=== PATIENT | female | born 1950 | race Caucasian/White ===

== ENCOUNTER → 2017-01-02 | Outpatient (CLI) | payer MEDICARE, OTHER ==
[~2017-01-02] MED LIST: BUPR150T3; CIPR500S5 PO; LIDOCAINE 1% 30ml (STERI-PAK) ONE; LIDOCAINE 2%/EPI 1:100,000 20ml MDV ONE; LISI10TA7 PO; METO50TA5 PO; METOPROLOL; NORMAL SALINE 250 ML IV ONE; OXYC5TAB84 PO
--- NOTE | 2017-01-02 19:40 | PROCEDUREF ---
DATE OF PROCEDURE 01/02/2017 DIAGNOSIS BEFORE PROCEDURE Suspicious mass at right breast demonstrated on 12/31/2016 right diagnostic mammograms and on 12/31/2016 right breast ultrasound examination. DIAGNOSIS AFTER PROCEDURE Suspicious mass at right breast demonstrated on 12/31/2016 right diagnostic mammograms and on 12/31/2016 right breast ultrasound examination. PROCEDURE Ultrasound-guided percutaneous biopsy of right breast mass using a vacuum- assisted device. SURGEON Dr. Edwards ANESTHESIA Local anesthetic. FINDINGS This patient did undergo a right breast ultrasound examination on 12/31/2016 at [facility]. This ultrasound examination did show a 1.4 cm by 1.1 cm x 1.3 cm mass at the right breast at 11 o'clock position at middle depth 5 cm out from the nipple. This mass was taller than wide. The mass was irregular with an angular margin. The mass was hypoechoic with posterior shadowing. The mass was thought to be highly suggestive of a malignancy. This was an ultrasound BI-RADS category 5 (highly suggestive of malignancy) finding. Ultrasound-guided biopsy was recommended. The appearance of the mass at the right breast at ultrasound examination today was the same as the appearance at the previous ultrasound examination performed on 12/31/2016. The patient did have a 1.4 cm by 1.1 cm x 1.3 cm mass at the right breast at 11 o'clock position at middle depth 5 cm out from the nipple. This was a hypoechoic mass with posterior shadowing. Unilateral right mammograms were performed following the procedure today. The mammograms did show the biopsy cavity and the radiopaque biopsy site marker clip at the right breast in the correct position at 11 o'clock position. DESCRIPTION OF OPERATION The patient was placed on a cart in the ultrasound room at the [facility]. A targeted ultrasound examination of the right breast was performed. The suspicious mass at the right breast was demonstrated. The mass did appear the same at ultrasound examination today as it had at the previous ultrasound examination performed on 12/31/2016. The right breast was prepped with Betadine. Sterile drapes were placed. The mass was again demonstrated with ultrasound examination. A skin entrance site for biopsy of the mass with a vacuum-assisted device was selected in a location medial to the mass. Xylocaine 1% without epinephrine was infiltrated at the skin entrance site medial to the mass. This did provide local anesthesia. The scalpel was used to make a small incision at the skin at this area. Additional 1% Xylocaine without epinephrine was infiltrated into the breast tissue between the skin entrance site and the mass using a syringe and a 20-gauge spinal needle. Tissue deep to the mass was infiltrated with Xylocaine using a syringe and a 20-gauge spinal needle. Tissue out beyond the mass was infiltrated with Xylocaine using a syringe and a 20-gauge spinal needle. All this was done with the 20-gauge spinal needle with ultrasound guidance to observe where the local anesthetic was being infiltrated into the tissue. A [employer] [facility] breast biopsy and excision system with a 12-gauge needle was then used to perform the biopsies. The needle was introduced at the skin entrance site medial to the mass and passed through breast tissue into position beneath the mass using ultrasound guidance. Biopsy of the mass was then performed under direct visualization with real-time ultrasound. Multiple biopsy specimens were removed. All the biopsy specimens were obtained under direct visualization with real-time ultrasound. An [employer] titanium biopsy site marker was then deployed at biopsy site. This was deployed through the needle of the [employer] [facility] breast biopsy and excision system. The needle was removed from the breast. Biopsy specimens were submitted for study by the pathologist. The skin incision at the biopsy site was closed with Dermabond. Postprocedure unilateral right mammogram films were performed. The mammograms were reviewed with the radiologist. The patient did appear to tolerate the procedure well. [facility]. CHERIE
== END ==
LOC: IMA 10:22
PROVIDERS: ATTEND Surgery
DX: C50.411 Malignant neoplasm of upper-outer quadrant of right female breast (principal); Z17.0 Estrogen receptor positive status [ER+]; N63 Unspecified lump in breast
CPT/HCPCS: 19083; 88305; 88342; 88361; G0206; J7050

== ENCOUNTER 2017-01-15 07:25 | Outpatient (CLI) | payer MEDICARE, OTHER ==
[2017-01-15] VITALS (32 sets, daily range): BP systolic 107–177; BP diastolic 61–87; PULSE 68–87; RESP 8–18; TEMP 95.9–97.8; O2SAT 89–100; Ht 166.4 cm; Wt 68.1 kg
[~2017-01-15] VITALS: Ht 166.4 cm; Wt 68.1 kg
[~2017-01-15 07:25] MED LIST changes: -BUPR150T3; -CIPR500S5 PO; +LIDOCAINE 1% (10mg/ml) 2ml SDV INJ ONE; -LIDOCAINE 1% 30ml (STERI-PAK) ONE; -LIDOCAINE 2%/EPI 1:100,000 20ml MDV ONE; +LR 1,000 ML IV PRN; -METOPROLOL; -NORMAL SALINE 250 ML IV ONE; -OXYC5TAB84 PO
[2017-01-15 08:17] LABS: BASOPHILS % (AUTO) 0.5 % (0-2); EOSINOPHILS # (AUTO) 0.2 T/MM3 (0-0.5); EOSINOPHILS % (AUTO) 5.6 % (0-4); HCT - HEMATOCRIT 38.6 % (36-46); HGB - HEMOGLOBIN 12.6 GM/DL (12-16); IMMATURE GRANULOCYTE # (AUTO) 0.01 T/MM3 (0.00-0.03); IMMATURE GRANULOCYTE % (AUTO) 0.3 % (0.0-0.5); LYMPHOCYTES # (AUTO) 1.1 T/MM3 (1-4.8); LYMPHOCYTES % (AUTO) 28.1 % (23-45); MEAN CORPUSCULAR HGB 30.7 UUG (26-34); MEAN CORPUSCULAR HGB CONC(MCHC 32.6 GM/DL (31-37); MEAN CORPUSCULAR VOLUME 94.1 UM3 (80-100); MEAN PLATELET VOLUME 9.6 UM3 (9.4-12.4); MONOCYTES # (AUTO) 0.3 T/MM3 (0-0.8); MONOCYTES % (AUTO) 7.7 % (0-9.0); NEUTROPHILS #(AUTO)-ABSOLUTE 2.3 T/MM3 (1.8-7.7); NEUTROPHILS % (AUTO) 57.8 % (33-66); WBC - WHITE BLOOD COUNT 3.9 T/MM3 (4.5-11.0)
--- NOTE | 2017-01-15 08:50 | NUR ---
PT STATUS TO RADIOLOGY PER WC FOR SENTINEL NODE INJECTION AND NEEDLE LOCALIZATION
[2017-01-15] MEDS ORDERED: LIDOCAINE 1% 30ml (STERI-PAK) ONE (09:23)
--- NOTE | 2017-01-15 10:20 | NUR ---
pt status pt back from radiology per wc
--- NOTE | 2017-01-15 11:12 | DI ---
Indication: The purpose of this study is to localize the sentinel lymph node(s) for purposes of surgical planning. Procedure:NM LYMPHOSCINTIGRAPHY LYMPHOSCINTIGRAPHY: Technique: After discussing the details of the procedure, including the risks, the patient wished to proceed. Informed consent was obtained. A preprocedural pause was performed to confirm the correct patient and procedure. Approximately 0. 25 mCi of Tc-99m sulfur colloid was injected intradermally in four periareolar locations in the right breast. A total of approximately 1 mCi of Tc-99m sulfur colloid was injected. Anterior planar images were subsequently obtained. Findings: The 4 intradermal injection sites are visualized as intense focal uptake in the right breast region. Impression: 1. Technically successful periareolar injections for the purpose of lymphoscintigraphy. Jake Cason RPA/KATIE performed this under my personal supervision. .
--- NOTE | 2017-01-15 12:36 | ANESPREOP ---
Anesthesia Record Date and Time DATE: 01/15/17 TIME: 12:34 Proposed Surgical Procedure RT. PARTIAL MASTECTOMY AFTER BNEEDLE WIRE LOC. NPO since: mn Allergies: Coded Allergies: codeine (Verified Allergy, Intermediate, swells, 01/15/17) Penicillins (Verified Allergy, Unknown, RASH, 01/15/17) Ht/Wt/BMI Height: 5 ' 5.50 " Weight: 65.500 kg BMI: 23.7 kg/m2 Vital Signs Date Time Temp Pulse Resp B/P Pulse Ox O2 Delivery O2 Flow Rate FiO2 01/15/17 11:45 97.2 01/15/17 07:46 73 14 133/75 96 Room Air Medications Inpatient Medications Current Medications Medications (Trade) Dose Ordered Sig/Epi Start Time Stop Time Status Last Admin Dose Admin Lactated Ringer's (Lactated Ringers) 1,000 ml @ 50 mls/hr Q20H PRN 01/15/17 07:00 01/15/17 08:20 50 MLS/HR Lisinopril (Lisinopril) 10 Mg Tablet, 1 TAB PO DAILY, (Reported) Last Taken: on 01/14/17 Metoprolol Tartrate (Metoprolol Tartrate) 50 Mg Tablet, 1 TAB PO HS, (Reported) Last Taken: on 01/13/17 Currently on Beta Yojana: Yes Beta Yojana Last Taken: 01-13-17 at 2100 Beta Yojana not given due to: Other (npo) Medical/Surgical History Anesthesia PMH: Reports: *Hypertension (TAKES MEDS), Cancer (RT, SIDE BREAST CANCER), Hyperlipidemia, Denies: Anesthesia Reactions (NO AIRWAY ISSUES, NAUSEA) , Glaucoma, Hepatitis, Malignant Hyperthermia, Rheumatic Fever, Sleep Apnea Smoking Status: Never smoker Use Chewing Tobacco?: No Second Hand Exposure: No Substance Use Type: does not use Alcohol Intake: none HX of Last Menstrual Period: EARLY 50'S Past Surgical History Orthopedic Surgeries: Abdominal Surgeries: Yes - APPY Genitourinary Surgeries: Cardiac Surgeries: Endocrine Surgeries: Reproductive Surgeries: Neurological Surgeries: Ear Surgeries: Nose Surgeries: Throat Surgeries: Yes - TONSILLS Other Surgeries: Yes - COLONOSCOPY Anesthesia Adverse Reactions: FOUND nausea and vomiting Family Hx of Anesthesia Advers: none Hx of Motion Sickness: No Pertinent Findings Laboratory Tests 01/15/17 08:01 Physical Exam Respiratory: Bilat breath sounds equal, Lungs clear Cardiovascular: FOUND Regular rate, rhythm Airway Assessment Mallampati Score: I TMD: 3 Fingerbreadths Neck Extension: Fair Teeth: Chipped Teeth/Crowns 1 - chipped Overall Assessment: No Airway Concerns ASA: 2 Plan Anesthesia Plan: LMA, GETA Discussion Discussed risks/options/alternatives of anesthesia and questions answered. Patient consents. Nursing pain assessment noted. Present: Family Member Attestation Statement Prior to the delivery of any anesthetic medication, I examined the patient, developed the plan, obtained the patient's consent and discussed the risk and benefits of the procedure with the patient/guardian. DILAN NIÑO IN HOME NANNY Jan 15, 2017 12:36
[2017-01-15] MEDS ORDERED: PROPOFOL 200mg 20 ML IV ONE (12:43)
[2017-01-15] MEDS ORDERED: FENTANYL 250mcg/5ml INJECTION ONE (12:43)
[2017-01-15] MEDS ORDERED: SCOPOLAMINE 1.5 MG PATCH TD ONE (12:45)
[2017-01-15] MEDS ORDERED: MIDAZOLAM 2mg/2ml INJECTION ONE (13:02)
[2017-01-15] MEDS ORDERED: DEXAMETHASONE 4mg/ml - 1ml INJECTION ONE (13:21)
[2017-01-15] MEDS ORDERED: ONDANSETRON 4mg/2ml INJECTION ONE (13:21)
[2017-01-15] MEDS ORDERED: HYDROMORPHONE 2mg/ml INJECTION ONE (14:45)
[2017-01-15] MEDS ORDERED: ISOSULFAN BLUE 5ml INJECTION SQ ONE (15:00)
[2017-01-15] MEDS ORDERED: ONDANSETRON 4mg/2ml INJECTION IV PRN ×2 (15:00→15:30)
[2017-01-15] MEDS ORDERED: HYDROMORPHONE 2mg/ml INJECTION IV PRN (15:00)
--- NOTE | 2017-01-15 15:25 | GSPOSTPROC ---
Immediate Operative Note DATE: 01/15/17 TIME: 15:24 Postop Diagnosis: Right breast carcinoma Surgical Procedure: Other (Right partial mastectomy) Surgeon: Grace ASA: 2 TITUS MANCERA MD Jan 15, 2017 15:25
[2017-01-15] MEDS: LR 1,000 ML IV SCH (15:26)
[2017-01-15] MEDS ORDERED: MORPHINE SULFATE 10 MG SYRINGE IV PRN (15:30)
[2017-01-15] MEDS ORDERED: ACETAMINOPHEN 500 MG TABLET PO PRN (15:30)
[2017-01-15] MEDS ORDERED: PROMETHAZINE 25 MG INJECTION IV PRN (15:30)
--- NOTE | 2017-01-15 15:54 | NUR ---
PACU/PAIN/NOTIFICATION Siva Dunaway crna and Dr Edwards both notified of pt rating pain 8-9/10 to Right Breast. Pt on 2L NC, respirations 10-11/minute. Order for Dilaudid from anesthesia. This RN not administering this medication due to respirations. Siva Dunaway suggest Toradol. Dr Edwards declines use of Toradol at this time. Dr Edwards verbalized that this RN can administer PO medication in PACU for pain management if pt is awake. pt states to this RN she is not ready to swallow pills at this time until more awake. Will continue to monitor.
--- NOTE | 2017-01-15 16:18 | NUR ---
Anesthesia/PACU Siva Dunaway CRNA here to see pt in pacu. pt continues to have 10-12 respirations, responds quickly to verbal stimuli. Plan of care discussed with pt that pt will transfer to room on surgical unit and receive PO pain medication. Pt verbalized understanding and agrees to plan at this time. Will call report to nurse on surgical unit. Will transfer post pt.
--- NOTE | 2017-01-15 16:20 | ANESPO ---
Post-Op Note Date 01/15/17 Time: 16:20 Status Pt Participated in Evaluation: Pt participated in person Vital Signs Date Time Temp Pulse Resp B/P Pulse Ox O2 Delivery O2 Flow Rate FiO2 01/15/17 16:05 97.6 72 8 142/74 98 Nasal Cannula 2.00 Respiratory Function: Airway patent, Regular respirations Cardiovascular Function: Regular pulse Mental Status: Alert/oriented Pain Level Intensity: 6 Hydration: IV infusing Complications during Recovery None apparent Follow-Up Instructions Instructions Per Surgeon DILAN NIÑO CRNA Jan 15, 2017 16:20
--- NOTE | 2017-01-15 16:31 | NUR ---
Admit Pt transferred self from cart to bed. [address] Pt denies nausea. VS stable on 1L NC. present in room. Side rails up X2, call light w/in reach, bed alarm on. Will continue to monitor.
[2017-01-15] MEDS: OXYCODONE I.R. 5 MG TABLET PO PRN ×2 (17:23→21:37)
--- NOTE | 2017-01-15 18:49 | NUR ---
Summary Pt weaned off oxygen, VS have been stable on RA. Pt has denied nausea. Pt rated pain a 7/10, 2 tabs oxycodone given. Discussed other pain management options with Pt. Family has been present in room. Bed alarm on, call light w/in reach.
[2017-01-15] MEDS: IBUPROFEN 200 MG TABLET PO PRN (19:15)
[2017-01-16 00:10] VITALS: BP 104/64; PULSE 70; RESP 16; TEMP 95.2; O2SAT 99
[2017-01-16] MEDS: LR 1,000 ML IV SCH (00:20)
[2017-01-16] MEDS: IBUPROFEN 200 MG TABLET PO PRN ×2 (00:25→09:02)
[2017-01-16] MEDS: OXYCODONE I.R. 5 MG TABLET PO PRN ×4 (01:21→15:52)
--- NOTE | 2017-01-16 03:29 | NUR ---
Chart Check 24 hour chart check completed
[2017-01-16 05:37] VITALS: BP 112/66; PULSE 69; RESP 16; TEMP 95; O2SAT 100
--- NOTE | 2017-01-16 06:31 | NUR ---
STATUS PATIENT ALERT AND ORIENTED. PATIENT C/O PAIN AT RT BREAST SURGICAL AREA ,RATED 4-7/10. PRN ROXICODONE AND MOTRIN WAS GIVEN. ON ROOM AIR.DENIES CHEST PAIN,SOA,OR N/V.PATIENT AMBULATED TO BATHROOM TO VOID ONE TIME DURING NIGHT. PATIENT WANTED TO LEARN TO EMPTY FELIPE DRAINAGE THIS MORNING. CALL LIGHT WITHIN REACH. CONTINUE TO MONITOR.
[2017-01-16 07:36] VITALS: PULSE 69; RESP 16
[2017-01-16 07:37] VITALS: BP 117/67; PULSE 69; RESP 16; TEMP 97.6; O2SAT 100
--- NOTE | 2017-01-16 08:45 | NUR ---
FELIPE dressing Dr. Edwards in to see Pt at this time and removed dressing from incision sites. Leave open to air per Dr. Edwards.
[2017-01-16] MEDS ORDERED: LISINOPRIL 10 MG TABLET PO SCH (09:00)
--- NOTE | 2017-01-16 09:46 | OPNOTEF ---
DATE OF OPERATION 01/15/2017 PREOPERATIVE DIAGNOSIS Invasive ductal carcinoma at right breast. POSTOPERATIVE DIAGNOSIS Invasive ductal carcinoma at right breast. OPERATION Right axillary sentinel lymph node dissection and right partial mastectomy ( lumpectomy). SURGEON Dr. Edwards ANESTHESIA General. ASA CLASS 2 FINDINGS The patient did have a nonpalpable mass at the upper outer quadrant of the right breast. Previous core needle biopsy of the mass did show a diagnosis of invasive ductal carcinoma. The patient did have two sentinel lymph nodes at the right axilla removed at the time of the operation today. Each of these two sentinel lymph nodes was stained blue with Lymphazurin 1% (isosulfan blue) dye. Both of the sentinel lymph nodes also had elevated radioactive counts. The ex vivo peak count for the first sentinel lymph node was 381 counts per second. The ex vivo 10-second count for the first sentinel lymph node was 2,931 counts per second. The ex vivo peak count for the second sentinel lymph node was 259 counts per second. The ex vivo 10-second count for the second sentinel lymph node was 1,595 counts per second. The patient did undergo preoperative ultrasound-guided needle wire localization of the nonpalpable mass at the right breast by a radiologist at the [facility]. A specimen of right breast tissue containing the mass and containing the needle localization wire was removed at the time of the operation. The specimen of breast tissue which was excised from the right breast was submitted for specimen radiography. A verbal report was returned from the radiologist following specimen radiography indicating that the right breast mass was present within the specimen of right breast tissue excised at the time of the operation today. DESCRIPTION OF OPERATION The patient was taken to the imaging department at [facility] preoperatively where technetium- 99m sulfur colloid radioisotope was injected at the right breast. The injection of the technetium-99m sulfur colloid radioisotope was performed by the radiologist at the imaging department. The patient did also undergo preoperative needle wire localization of the nonpalpable mass and the previous core needle biopsy site at the right breast by the radiologist at the [facility] [place] [facility]. The patient was then transferred to the short stay surgery unit. The patient was then transferred from the short stay surgery unit to the operating room. The patient was placed in a supine position on the operating table with the right arm extended out on an arm board. General anesthesia was satisfactorily induced. Lymphazurin 1% ( isosulfan blue) dye was then injected by Dr. Edwards. A total of 5 ml of this Lymphazurin 1% dye was injected subdermally beneath the upper outer quadrant of the areola of the right breast. The right breast and axilla were then prepped and draped in routine sterile fashion. A short incision was made at the anterior margin of the right axilla. The incision was extended down through the subcutaneous tissue. The margin of the pectoralis major muscle was dissected out and defined at this time. The margin of the pectoralis minor muscle was also dissected out and defined at this time. Clavipectoral fascia was incised. The axillary tissue at the right axilla was spread with a hemostat to bluntly dissect down into the axillary tissue. Some lymphatic channels filled with blue dye were searched for and were identified at this time. These lymphatic channels were dissected out and they did lead to a blue lymph node. This blue lymph node was excised with the Harmonic focus ultrasonically activated coagulating marlyn. The Navigator Gamma Positioning System was then used to determine the radioactive count for this sentinel lymph node. Results are as described above. This lymph node was designated sentinel lymph node #1 and was submitted as a specimen for study by a pathologist. The lymphatic mapping gamma probe was then used to examine the right axilla. This examination of the right axillary tissue with the lymphatic mapping gamma probe did lead to the identification of another lymph node with an elevated radioactive count. Dissection was extended down through right axillary tissue to this lymph node. When this lymph node was exposed, it was also found to have a blue color. This second sentinel lymph node was then excised with the Harmonic focus ultrasonically activated coagulating marlyn. The Navigator Gamma Positioning System was then used to determine the radioactive count for this second sentinel lymph node. Results were as described above. The second sentinel lymph node was then submitted as a specimen for study by a pathologist. The lymphatic mapping gamma probe was then used to further examine the right axillary tissue. No further lymph nodes with elevated radioactive count were able to be found with the lymphatic mapping gamma probe. No further blue-colored lymph nodes were able to be found at the right axillary tissue. Hemostasis was satisfactory at the axilla. A 19-Dominican round Bard channel drain was placed to the right axillary wound. The drain was brought out through a separate opening in the skin. The drain was secured to the skin with 2-0 Prolene suture. Subcutaneous tissue margins at the right axillary wound were reapproximated in two layers with a continuous simple [id number] stitch using 3-0 Vicryl suture. Skin margins at the right axillary incision were reapproximated with a continuous vertical mattress stitch using 3-0 Prolene suture. Attention was directed to performing a right partial mastectomy to remove the nonpalpable mass and the biopsy site at the right breast. A circumferentially oriented incision was made at the upper outer quadrant of the right breast. The incision was extended laterally nearly all the way over to the point where the needle localization wire entered the skin of the breast. Skin and subcutaneous tissue flaps were elevated at superior and inferior sides of this incision. The needle localization wire was brought out through the incision. A specimen of breast tissue containing the needle localization wire was excised. This specimen of tissue also contained a palpable mass. The specimen of right breast tissue containing the needle localization wire and the mass which was now able to be palpated within this tissue was submitted for specimen radiography. A verbal report was returned from the radiologist following specimen radiography with results as described above. The specimen of breast tissue was then submitted for study by a pathologist. A long 3-0 Vicryl suture had been placed at the lateral margin of this specimen of breast tissue and a short piece of 3-0 Vicryl suture had been placed at the superior margin of this specimen of breast tissue to help orient the specimen for the pathologist. Hemostasis was achieved at the wound. A 19-Dominican round Bard channel drain was placed at the right breast wound. This drain was brought out through a separate skin opening beneath the inferior lateral margin of the right breast. The drain was secured to skin with 2-0 Prolene suture. The subcutaneous tissue margins of the right breast incision were reapproximated with a continuous simple [id number]-[id number] stitch using 3-0 Vicryl suture. The skin margins at the right breast incision were reapproximated with a continuous vertical mattress stitch using 3-0 Prolene suture. Sterile dressings were applied to the wound at the right breast and the wound at the right axilla. Sponge, needle and instrument counts were all correct. The patient tolerated the operation well. The patient was transferred from the operating room to the recovery room in satisfactory condition. CHERIE
--- NOTE | 2017-01-16 10:39 | PNF ---
DATE 01/16/2017 POSTOP DAY #1 HISTORY The patient is doing well. She has good pain control with oral analgesics. She is tolerating her diet well. She has been up ambulating. She meets discharge criteria. INTAKE AND OUTPUT The patient has had minimal output from the Bard channel drains. PHYSICAL EXAMINATION VITAL SIGNS: Temperature is 97.6 degrees oral. Pulse is 69. Respiratory rate is 16. Blood pressure is 117/67. Oxygen saturation is 100% on room air. BREASTS: The incision at the right breast looks good. The Bard drain site to the right breast looks good. AXILLA: The incision at the right axilla looks good. The Bard drain site to the right axilla looks good. IMPRESSION Doing well following right axillary sentinel lymph node dissection and right partial mastectomy (lumpectomy) on 01/15/2017. PLAN Dismiss patient from [facility] today. CHERIE
--- NOTE | 2017-01-16 11:15 | NUR ---
CM CM IN TO VISIT WITH PT. SHE IS ALERT AND ORIENTED. SHE PLANS TO DC HOME. SHE REPORTS THAT SHE IS COMFORTABLE CARING FOR HER FELIPE DRAINS. SHE IS GIVEN CM CONTACT INFORMATION. LACE SCORE IS 3. NO FURTHER INTERVENTION NEEDED. Addendum: 01/16/17 at 1125 by RONNIE TUBBS RN Amended: Links added.
[2017-01-16 11:35] VITALS: BP 111/65; PULSE 81; TEMP 97.3; O2SAT 98
[2017-01-16] MEDS ORDERED: OXYC5TAB84 PO (16:02)
--- NOTE | 2017-01-16 17:07 | NUR ---
Discharge Pt discharged at this time via wheelchair through the main entrance in the company of an adult. IV catheter was DC'd, catheter tip intact. VS stable on RA. Discharge packet and instructions were given to Pt. This RN discussed medications, activity, diet, restrictions, and follow up appt with Pt. This RN did teaching and had the Pt empty both FELIPE drains. Pt demonstrated emptying the drains and suctioning the bulb back down properly. This RN gave Pt sheets to measure and record the output for the FELIPE drains. This RN sent Pt home with medication cups and plastic cylinders to measure the drainage with. Prescription for Oxycodone was given to the Pt to take to preferred pharmacy.
[2017-01-18] MEDS ORDERED: SCOPOLAMINE PATCH REMOVAL TD ONE (13:00)
--- NOTE | 2017-01-21 13:51 | NUR ---
MALINDA PETTY PLACED FOLLOW UP DISCHARGE CALL. PATIENT REPORTS SHE IS DOING GOOD, SHE HAD HER FOLLOW UP WITH THE DOCTOR AND HE TOLD HER EVERYTHING LOOKED GREAT. PATIENT REPORTS SHE WILL SEE THE ONCOLOGIST THIS FRIDAY. PATIENT DENIES QUESTIONS OR CONCERNS.
== END 2017-01-16 17:07 | disposition home or self-care (01) ==
LOC: IMA 07:25 → SRG 07:26 → IMA 01-16 17:07
PROVIDERS: ATTEND Surgery
DX: C50.411 Malignant neoplasm of upper-outer quadrant of right female breast (principal); C77.3 Secondary and unspecified malignant neoplasm of axilla and upper limb lymph nodes; Z17.0 Estrogen receptor positive status [ER+]; I10 Essential (primary) hypertension; E78.5 Hyperlipidemia, unspecified; Z79.899 Other long term (current) drug therapy
CPT/HCPCS: 19285; 19301; 36415; 38525; 38900; 76098; 78195; 85025; 88307; A9270; A9541; J1100; J1170; J2250; J2405; J2704; J3010; J7120; Q9968

== ENCOUNTER → 2017-02-07 | Outpatient (CLI) | payer MEDICARE, OTHER ==
[~2017-02-07] MED LIST changes: +IOHEXOL 300 MG/ML 100ml INJECTION ONE; -LIDOCAINE 1% (10mg/ml) 2ml SDV INJ ONE; -LR 1,000 ML IV PRN; +NORMAL SALINE 100 ML ONE; +OXYC5TAB84 PO; +SALINE FLUSH 10ml SYRINGE ONE
[2017-02-07 07:57] LABS: ALBUMIN 4.2 G/DL (3.5-5.0); ALBUMIN/GLOBULIN RATIO 1.5 RATIO (1.1-2.2); ALKALINE PHOSPHATASE 68 U/L (38-126); ALT (SGPT) 28 U/L (9-52); ANION GAP 11 MEQ/L (5-15); AST (SGOT) 26 U/L (14-36); BUN/CREATININE RATIO 17 RATIO (6-26); CALCIUM 10.1 MG/DL (8.4-10.2); CHLORIDE 107 MEQ/L (98-107); CO2 - CARBON DIOXIDE 27 MEQ/L (22-30); GLOMERULAR FILTRATION RATE 55; GLUCOSE 115 MG/DL (65-110); POTASSIUM 4.2 MEQ/L (3.6-5); SODIUM 145 MEQ/L (134-144)
--- NOTE | 2017-02-07 10:04 | DI ---
Indication: ITS.REASON: C50.411 BREAST CA PROCEDURE: CT HEAD/CHEST/ABD/PELVIS W/C: Encounter: Initial Comparison: Head CT dated October 25, 2016 CT head with and without: Technique: Axial CT images through the head were performed without and with IV contrast. Iterative Reconstruction dose reducing technique was utilized. Contrast: Omnipaque 300 89 mL FINDINGS: The ventricles are of normal size, shape, and contour for the patient's age. The brainstem, cerebellum, and cerebral hemispheres have a normal morphology and CT attenuation. No hemorrhage, mass effect, mass lesions, or edema is evident. No areas of abnormal enhancement are seen. The visualized portions of the skull base, and calvarium demonstrate no abnormality. Chronic appearing right maxillary sinusitis. IMPRESSION: No acute intracranial abnormality. No evidence of intracranial metastatic disease. CT chest, abdomen and pelvis with: Comparison: None Technique: Axial CT images were performed through the chest, abdomen and pelvis after the administration of intravenous contrast. Coronal and sagittal two-dimensional reformats. Automated Exposure Control and Iterative Reconstruction dose reducing techniques were utilized. Contrast: Omnipaque 300 89 mL Findings: Chest: Round subpleural right upper lobe nodule on axial image #16 measuring 1.4 cm in diameter. There is a calcified granuloma in the right upper lobe on image #21. Partially calcified 5 mm right lower lobe nodule on image #47. No additional pulmonary nodules or masses. No pleural effusion or pneumothorax. The central airways are patent. No pneumonia. No axillary or mediastinal adenopathy. Postoperative change in the right breast. Heart size is normal. No pericardial effusion. The great vessels are normal. Abdomen/pelvis: 1.9 cm cyst in the superior left lobe of the liver. Additional subcentimeter low-attenuation foci in the posterior right lobe of the liver which are too small to characterize but statistically represent benign cysts. No enhancing liver mass or bile duct dilatation. The gallbladder is unremarkable. The spleen with accessory splenule, pancreas, adrenal glands and kidneys are normal. No abdominal or pelvic lymphadenopathy. The bladder is normal. Uterus is unremarkable. No free fluid. No evidence of a bowel obstruction. Bone windows show mild degenerative change in the spine. There is a mixed lytic and sclerotic lesion in the right aspect of L5 measuring 1.7 cm in diameter. This does not have the typical appearance of a hemangioma. No additional lytic or blastic osseous lesions seen. Impression: 1. 1.4 cm pleural-based right upper lobe nodule is indeterminate. Differential considerations include noncalcified granuloma, hamartoma, metastasis or neurogenic tumor such as neurofibroma. PET/CT could be helpful for further evaluation or comparison with any available prior CT imaging of the chest. 2. Isolated sclerotic focus in the right L5 vertebra. Differential considerations include atypical hemangioma, metastasis or bone island. Nuclear medicine bone scan or contrast enhanced lumbar MRI may be helpful for further evaluation. .
--- NOTE | 2017-02-07 10:40 | DI ---
Indication: ITS.REASON: C50.411 BREAST CA PROCEDURE: NM BONE SCAN, WHOLE BODY: Encounter: Subsequent Comparison: CT head, chest, abdomen and pelvis from today Technique: 27 mCi of Tc-99m MDP was administered intravenously. Anterior and posterior planar whole-body and spot images were obtained. FINDINGS: The scan demonstrates the expected normal biodistribution for the radiotracer. There is probable degenerative uptake seen in the left upper cervical spine. There is also degenerative uptake in the right acetabular region corresponding to an area of subchondral cystic degenerative change on the comparison CT. There is lesser degenerative uptake in the left acetabular region. There is evidence of very subtle uptake in the right L5 vertebra in the area of abnormality seen on the CT. No other areas of abnormal uptake. There is no abnormal radiotracer uptake to suggest bony metastasis. IMPRESSION: Very mild uptake within the sclerotic L5 vertebral lesion seen by CT. A benign process would be statistically more likely than an isolated bony metastasis but further evaluation with CT-guided biopsy or contrast enhanced MRI may be helpful. .
== END ==
LOC: IMA 07:12
PROVIDERS: ATTEND Internal Medicine Hematology & Oncology
DX: C50.411 Malignant neoplasm of upper-outer quadrant of right female breast (principal); R91.1 Solitary pulmonary nodule; R94.8 Abnormal results of function studies of other organs and systems
CPT/HCPCS: 36415; 70470; 71260; 74177; 78306; 80053; A9503; J7050; Q9967

== ENCOUNTER 2017-02-11 12:09 | Day surgery (SDC) | payer MEDICARE, OTHER ==
[~2017-02-11] VITALS: Ht 166.4 cm; Wt 60.2 kg
[~2017-02-11 12:09] MED LIST changes: -IOHEXOL 300 MG/ML 100ml INJECTION ONE; +LIDOCAINE 1% (10mg/ml) 2ml SDV INJ ONE; +LR 1,000 ML IV SCH; -NORMAL SALINE 100 ML ONE; -SALINE FLUSH 10ml SYRINGE ONE
--- OUTSIDE RECORDS SUMMARY | 2017-02-11 12:13 | XMS REPORT | Continuity of Care Document ---
Author Author [facility] Organization [facility] Address Unknown Phone Unavailable Support Name Relationship Address Phone CARI CHAMPION MD Caregiver [address] [place] [address] [place] [phone] REGINALD COLE Next Of Kin [address] [place] [id number] Insurance Providers Payer Name Policy Number Subscriber Name Relationship Medicare [id number] Sharon Cole 16 Self Advance Directives Directive Response Recorded Date/Time Advanced Directives Type None 06/03/14 2:54am Problems Medical Problems Problem Onset Date Status UTI (lower urinary tract infection) Unknown Active Anxiety Unknown Active Medications Medication Dose Route Sig Days/Qty Instructions Order Date Discontinued Date Status Lisinopril 06/03/14 Active Bupropion HCl 06/03/14 Active [Metoprolol] 06/03/14 Active Ciprofloxacin 500 Mg PO TWICE A DAY 7 Days 06/03/14 Active Social History Social History Problem Response Recorded Date/Time Smoking Status Unknown if ever smoked 06/03/2014 3:45am Chewing Tobacco Status No 06/03/2014 3:45am Hx Substance Use No 06/03/2014 3:45am Hx Alcohol Use Y "A GLASS OF WINE TONIGHT" 06/03/2014 3:45am Hospital Discharge Instructions No hospital discharge instructions. Plan of Care No plan of care. Functional Status Query Response Date Recorded Physical Hygiene Self June 03, 2014 3:45am Disabilities None June 03, 2014 3:45am Devices Used None June 03, 2014 3:45am Dressing Self June 03, 2014 3:45am Ambulation Self June 03, 2014 3:45am Diet Self June 03, 2014 3:45am Mental Status Alert June 03, 2014 5:28am Disabilities None June 03, 2014 3:45am Devices Used None June 03, 2014 3:45am Physical Hygiene Self June 03, 2014 3:45am Dressing Self June 03, 2014 3:45am Ambulation Self June 03, 2014 3:45am Diet Self June 03, 2014 3:45am Allergies, Adverse Reactions, Alerts Allergen Type Severity Reaction Status Last Updated Penicillin Allergy Unknown Active 06/03/14 Immunizations No immunization records. Vital Signs Acute Vital Signs Vital Response Date/Time Temperature (Fahrenheit) 96.6 deg F (96.8 - 99.1) Temperature (Calculated Celsius) 35.71333 degrees C (36.0 - 37.3) Pulse Rate (adult) 76 bpm (60 - 100) Respiratory Rate 18 breaths/min (10 - 20) O2 Sat by Pulse Oximetry 97 % (90 - 100) Blood Pressure 136/79 mm Hg Height 5 ft 6 in Weight 144 lb Body Mass Index 23.0 kg/m^2 Results Test Source Date Result Interp. Ref. Range Comments Alanine Aminotransferase (ALT/SGPT) June 03, 2014 2:40am 35 U/L N 9- 52 Albumin June 03, 2014 2:40am 4.5 G/DL N 3.5-5.0 Albumin/Globulin Ratio June 03, 2014 2:40am 1.7 RATIO N 1.1-2.2 Alcohol, Quantitative June 03, 2014 2:40am 203 MG/DL - Alkaline Phosphatase June 03, 2014 2:40am 76 U/L N 38-126 Anion Gap June 03, 2014 2:40am 17 MEQ/L H 5-15 Aspartate Amino Transf (AST/SGOT) June 03, 2014 2:40am 37 U/L H 14-36 BUN/Creatinine Ratio June 03, 2014 2:40am 20 RATIO N 6-26 Basophils # (Auto) June 03, 2014 2:40am 0.0 T/MM3 N 0-0.2 Basophils (%) (Auto) June 03, 2014 2:40am 0.8 % N 0-2 Blood Urea Nitrogen June 03, 2014 2:40am 22.0 MG/DL H 7-17 Calcium Level June 03, 2014 2:40am 9.6 MG/DL N 8.4-10.2 Calculated Osmolality June 03, 2014 2:40am 287 MOSM/KG H 261-280 Carbon Dioxide Level June 03, 2014 2:40am 26 MEQ/L N 22-30 Chloride Level June 03, 2014 2:40am 105 MEQ/L N 98-107 Creatinine June 03, 2014 2:40am 1.1 MG/DL N 0.7-1.2 D-Dimer June 03, 2014 2:40am 222 NG/ML N 0-230 <224 NG/ML= PRESUMPTIVE NEGATIVE FOR PE OR DVT>224 NG/ML=ADDITIONAL EVALUATION FOR PE OR DVT RECOMMENDED Eosinophils # (Auto) June 03, 2014 2:40am 0.4 T/MM3 N 0-0.5 Eosinophils (%) (Auto) June 03, 2014 2:40am 7.1 % H 0-4 Globulin June 03, 2014 2:40am 2.7 G/DL N 2.4-3.6 Glucose Level June 03, 2014 2:40am 91 MG/DL N 65-110 Hematocrit June 03, 2014 2:40am 40.3 % N 36-46 Hemoglobin June 03, 2014 2:40am 13.6 GM/DL N 12-16 Lymphocytes # (Auto) June 03, 2014 2:40am 2.2 T/MM3 N 1-4.8 Lymphocytes (%) (Auto) June 03, 2014 2:40am 41.1 % N 23-45 Magnesium Level June 03, 2014 2:40am 2.1 MG/DL N 1.6-2.3 Mean Corpuscular Hemoglobin June 03, 2014 2:40am 32.4 UUG N 26-34 Mean Corpuscular Hemoglobin Concent June 03, 2014 2:40am 33.7 GM/DL N 31-37 Mean Corpuscular Volume June 03, 2014 2:40am 96.0 UM3 N 80-100 Mean Platelet Volume June 03, 2014 2:40am 9.8 UM3 N 9.4-12.4 Monocytes # (Auto) June 03, 2014 2:40am 0.5 T/MM3 N 0-0.8 Monocytes (%) (Auto) June 03, 2014 2:40am 9.6 % H 0-9.0 Neutrophils # (Auto) June 03, 2014 2:40am 2.2 T/MM3 N 1.8-7.7 Neutrophils (%) (Auto) June 03, 2014 2:40am 41.0 % N 33-66 Platelet Count June 03, 2014 2:40am 253 T/MM3 N 130-400 Potassium Level June 03, 2014 2:40am 4.2 MEQ/L N 3.6-5 RDW Standard Deviation June 03, 2014 2:40am 43.3 FL N 36.9-50.2 Red Blood Count June 03, 2014 2:40am 4.20 M/MM3 N 4.00-5.20 Sodium Level June 03, 2014 2:40am 148 MEQ/L H 134-144 Total Bilirubin June 03, 2014 2:40am 0.50 MG/DL N 0.20-1.30 Total Protein June 03, 2014 2:40am 7.2 G/DL N 6.3-8.2 Troponin I June 03, 2014 2:40am < 0.012 ng/ml 0-0.12 Urine Bacteria June 03, 2014 4:40am 1+ H - Has specimen been collected/obtained? Y Urine Bilirubin June 03, 2014 4:40am Negative - Has specimen been collected/obtained? Y Urine Blood June 03, 2014 4:40am Negative - Has specimen been collected/obtained? Y Urine Collection Type June 03, 2014 4:40am Voided-not cc-midstr - Has specimen been collected/obtained? Y Urine Color June 03, 2014 4:40am Yellow - Has specimen been collected/obtained? Y Urine Glucose (UA) June 03, 2014 4:40am Negative - Has specimen been collected/obtained? Y Urine Hyaline Casts June 03, 2014 4:40am 1-3 /LPF - Has specimen been collected/obtained? Y Urine Ketones June 03, 2014 4:40am Negative - Has specimen been collected/obtained? Y Urine Leukocyte Esterase June 03, 2014 4:40am 2+ H - Has specimen been collected/obtained? Y Urine Nitrite June 03, 2014 4:40am Negative - Has specimen been collected/obtained? Y Urine Protein June 03, 2014 4:40am Negative - Has specimen been collected/obtained? Y Urine RBC June 03, 2014 4:40am 0-1 /HPF - Has specimen been collected/obtained? Y Urine Specific [place] June 03, 2014 4:40am 1.010 L - Has specimen been collected/obtained? Y Urine Squamous Epithelial Cells June 03, 2014 4:40am 20-50 - Has specimen been collected/obtained? Y Urine Turbidity June 03, 2014 4:40am Clear - Has specimen been collected/obtained? Y Urine Urobilinogen June 03, 2014 4:40am 0.2 EU/DL - Has specimen been collected/obtained? Y Urine WBC June 03, 2014 4:40am 20-30 /HPF H - Has specimen been collected/obtained? Y Urine pH June 03, 2014 4:40am 6.0 - Has specimen been collected/ obtained? Y White Blood Count June 03, 2014 2:40am 5.3 T/MM3 N 4.5-11.0 Chemistry Specimen Hemolysis June 03, 2014 2:40am < 15 0-25 0-25: No Hemolysis.26-70: Slight Hemolysis - can falsely elevate K and Urine Protein. 71-285: Moderate Hemolysis - can falsely elevate K, Troponin I, CA 19-9, PTH, CSF GLucose, and Urine Protein, and can falsely decrease Phenytoin. 286-999: Gross Hemolysis - can falsely elevate K, Troponin I, CA 19-9, PTH, CSF Glucose, and Urine Protine, and can falsely decrease Phenytoin. Recommend specimen recollection. Turbidity June 03, 2014 2:40am < 20 0-20 Glomerular Filtration Rate Calc June 03, 2014 2:40am 50 - Immature Granulocyte # (Auto) June 03, 2014 2:40am 0.02 T/MM3 N 0.00- 0.03 Immature Granulocyte % (Auto) June 03, 2014 2:40am 0.4 % N 0.0-0.5 Icterus Index June 03, 2014 2:40am < 2 0-7 Procedures No known history of procedures. Encounters Encounter Location Date/Time Departed Emergency Room [facility] 06/03/14 2:54am Recent Diagnosis
--- OUTSIDE RECORDS SUMMARY | 2017-02-11 12:13 | XMS REPORT | Continuity of Care Document ---
Author Author [facility] Organization [facility] Address Unknown Phone Unavailable Support Name Relationship Address Phone TITUS MANCERA MD Caregiver [address] [place] [address] Unavailable MELISSA BACK II, MD Caregiver [address] [facility] [address] [place] [address] Unavailable REGINALD COLE Next Of Kin [address] [place] [address] C Insurance Providers Guarantor Loni Cole Address [address] [place] [address] C Email [email or web address] Payer Cigna Medicare Supplement Policy Number [id number] Subscriber's Name Loni Cole Relationship 18 Self Group Number PLAN Payer Medicare Policy Number [id number] Subscriber's Name Loni Cole Relationship 18 Self Advance Directives Directive Response Recorded Date/Time Dr Sl[place] Resuscitation Status Full Code 01/16/17 8:21am Resuscitation Documents on File No 01/15/17 8:08am DPOA for Healthcare Only No 01/15/17 8:08am Living Will No 01/15/17 8:08am Problems Active Problems Medical Problem Onset Date Status Anxiety Unknown Acute UTI (lower urinary tract infection) Unknown Acute Medications Current Home Medications Medication Dose Units Route Directions Days Qty Instructions Start Date Lisinopril 10 Mg Tablet 1 Tab Oral Daily 06/03/14 Metoprolol Tartrate 50 Mg Tablet 1 Tab Oral Bedtime 90 01/14/17 Oxycodone Hcl 5 Mg Tablet 5 Mg Oral Every 4 Hours as needed for Pain 40 Tablet 01/16/17 Social History Social History Problem Response Recorded Date/Time Onset Date Status Reason for Hospitalization Right partial mastectomy 01/16/2017 4:03pm Not Applicable Not Applicable Chewing Tobacco Status No 01/14/2017 9:42am Not Applicable Not Applicable Hx Substance Use No 01/14/2017 9:42am Not Applicable Not Applicable Hx Alcohol Use Y "A GLASS OF WINE NIGHTLY" 01/14/2017 9:42am Not Applicable Not Applicable Has the pt used tobacco in the last 12 months No 01/15/2017 8:06am Not Applicable Not Applicable Tobacco Usage none 06/03/2014 3:19am Not Applicable Not Applicable Query Response Start Date Stop Date Smoking Status Former smoker Hospital Discharge Instructions Instructions: Care Instructions: I was in the hospital because (patient own words): to have a right partial mastectomy Discharge Diet: Resume previous diet. Discharge Activity: Restricted. Follow Up Appointments: FOLLOW UP WITH DR. MANCERA IN HIS OFFICE ON Friday01/20/2017 AT 4:30 PM. Pending Lab / Results: No Pending Lab Expected Signs/Symptoms: Usual incisional discomfort Notify Physician If: Any concerns about appearance of wound. During Business Hours:: Please call the physician's office at [phone] and choose option 2. After Business Hours:: Please call [phone] and have the robotic machine operator page Dr. Mancera. Pain Management/Treatment: Take analgesics as prescribed. Pain Scale Utilized to Educate Patient: 0-10 Pain Scale Wound/Incision Care: May shower or bathe starting this evening. Condition at time of discharge: Good Plan of Care Discharge Date 01/16/17 5:07pm Instructions/Education Provided Heladio-Casas Drain Care (GEN) Mastectomy (DC) Prescriptions See Medication Section Functional Status Query Response Date Recorded Mobility Status Ambulatory w/assist January 15, 2017 4:31pm Assistive Devices None January 15, 2017 4:31pm Activity Limitations None January 15, 2017 4:31pm Feeding Ability Independent January 15, 2017 4:31pm Toileting Ability Assist January 15, 2017 4:31pm Grooming Ability Assist January 15, 2017 4:31pm Dressing Ability Assist January 15, 2017 4:31pm Driving Ability Dependent January 15, 2017 4:31pm Housework Ability Assist January 15, 2017 4:31pm Meal Preparation Ability Assist January 15, 2017 4:31pm Stair Climbing Ability Assist January 15, 2017 4:31pm Ability to complete ADL's impeded by No change January 15, 2017 4:31pm Cognitive/Perceptual Impairments None January 15, 2017 4:31pm Preferred Method of Learning Hands on January 15, 2017 4:31pm Allergies, Adverse Reactions, Alerts Allergen Type Severity Reaction Status Last Updated Penicillin Allergy Unknown RASH Active 01/15/17 Codeine Allergy Intermediate swells Active 01/15/17 Immunizations Query Response on File Recorded Date/Time Hx Influenza Vaccination Y 2016 01/14/17 9:42am Hx Pneumococcal Vaccination Yes 01/14/17 9:42am Hx Influenza Vaccination Y 2016 01/14/17 9:42am Influenza Vaccine Hx November 2016 01/16/17 11:51am Vital Signs Acute Vital Signs Vital Response Date/Time Temperature (Fahrenheit) 97.3 deg F (96.8 - 99.1) 01/16/2017 11:35am Temperature (Calculated Celsius) 36.89794 degrees C (36.0 - 37.3) 01/16/2017 11:35am Temperature Source Oral 01/16/2017 11:35am Pulse Rate (adult) 81 bpm (60 - 100) 01/16/2017 11:35am Respiratory Rate 16 breaths/min (10 - 20) 01/16/2017 7:37am O2 Sat by Pulse Oximetry 98 % (90 - 100) 01/16/2017 11:35am Oxygen Delivery Method Room Air 01/16/2017 11:35am Oxygen Delivery Method Nasal Cannula 01/15/2017 4:25pm Oxygen Flow Rate 1.00 L/min 01/15/2017 8:41pm Blood Pressure 111/65 mm Hg 01/16/2017 11:35am Blood Pressure Source Automatic Cuff 01/16/2017 11:35am Height (Feet) 5 feet 01/15/2017 7:45am Height (Inches) 5.50 inches 01/15/2017 7:45am Weight (Kilograms) 68.100 kg 01/16/2017 7:19am Body Mass Index (BMI) 23.7 01/15/2017 7:45am Results Laboratory Results Test Name Result Units Flags Reference Collection Date/Time Result Date/ Time Comments White Blood Count 3.9 T/MM3 L 4.5-11.0 01/15/2017 8:01am 01/15/2017 8: 17am Red Blood Count 4.10 M/MM3 4.00-5.20 01/15/2017 8:01am 01/15/2017 8: 17am Hemoglobin 12.6 GM/DL 12-16 01/15/2017 8:01am 01/15/2017 8:17am Hematocrit 38.6 % 36-46 01/15/2017 8:01am 01/15/2017 8:17am Mean Corpuscular Volume 94.1 UM3 80-100 01/15/2017 8:01/15/2017 8: 17am Mean Corpuscular Hemoglobin 30.7 UUG 26-34 01/15/2017 8:2016 8:17am Mean Corpuscular Hemoglobin Concent 32.6 GM/DL 31-37 01/15/2017 8:01/15/2017 8:17am RDW Standard Deviation 42.8 FL 36.9-50.2 01/15/2017 8:01/15/2017 8 :17am Platelet Count 210 T/MM3 130-400 01/15/2017 8:01/15/2017 8:17am Mean Platelet Volume 9.6 UM3 9.4-12.4 01/15/2017 8:01/15/2017 8: 17am Neutrophils (%) (Auto) 57.8 % 33-66 01/15/2017 8:01/15/2017 8: 17am Lymphocytes (%) (Auto) 28.1 % 23-45 01/15/2017 8:01/15/2017 8: 17am Monocytes (%) (Auto) 7.7 % 0-9.0 01/15/2017 8:01/15/2017 8:17am Eosinophils (%) (Auto) 5.6 % H 0-4 01/15/2017 8:01/15/2017 8:17am Basophils (%) (Auto) 0.5 % 0-2 01/15/2017 8:01/15/2017 8:17am Immature Granulocyte % (Auto) 0.3 % 0.0-0.5 01/15/2017 8:2016 8:17am Absolute Neutrophils (auto) 2.3 T/MM3 1.8-7.7 01/15/2017 8:2016 8:17am Absolute Lymphocytes (auto) 1.1 T/MM3 1-4.8 01/15/2017 8:2016 8:17am Absolute Monocytes (auto) 0.3 T/MM3 0-0.8 01/15/2017 8:01/15/2017 8:17am Absolute Eosinophils (auto) 0.2 T/MM3 0-0.5 01/15/2017 8:01am 2016 8:17am Absolute Basophils (auto) 0.0 T/MM3 0-0.2 01/15/2017 8:01am 01/15/2017 8:17am Absolute Immature Granulocyte (auto 0.01 T/MM3 0.00-0.03 01/15/2017 8: 01am 01/15/2017 8:17am Name: LONI COLE Unit #: [id number] : 1950 Sex: F Admit Date: Loc / Svc: SRG Discharge Date: DIAGNOSTIC IMAGING REPORT Report #: [id number] [facility] [place] ANNE-MARIE Indication: The purpose of this study is to localize the sentinel lymph node(s) for purposes of surgical planning. Procedure:NM LYMPHOSCINTIGRAPHY LYMPHOSCINTIGRAPHY: Technique: After discussing the details of the procedure, including the risks, the patient wished to proceed. Informed consent was obtained. A preprocedural pause was performed to confirm the correct patient and procedure. Approximately 0. 25 mCi of Tc-99m sulfur colloid was injected intradermally in four periareolar locations in the right breast. A total of approximately 1 mCi of Tc-99m sulfur colloid was injected. Anterior planar images were subsequently obtained. Findings: The 4 intradermal injection sites are visualized as intense focal uptake in the right breast region. Impression: 1. Technically successful periareolar injections for the purpose of lymphoscintigraphy. Jake Cason RPA/KATIE performed this under my personal supervision. . Procedures Procedure Status Date Provider(s) Ct head/brain w/o & w/dye Completed 10/25/16"INFUSION, NORMAL SALINE SOLUTION , 250 CC" Completed 10/25/16"LOW OSMOLAR CONTRAST MATERIAL, 300-399 MG/ML IODINE C Completed Breast tomosynthesis bi Completed 12/19/16 Dxa bone density axial Completed 12/19/16 [id number]"SCREENING MAMMOGRAPHY, PRODUCING DIRECT DIGITAL IMAGE Completed Ultrasound breast limited Completed 12/31/16 [id number]"DIAGNOSTIC MAMMOGRAPHY, PRODUCING DIRECT DIGITAL IMAG Completed Bx breast 1st lesion us imag Completed 01/02/17 Tissue exam by pathologist Completed 01/02/17 Immunohisto antb 1st stain Completed 01/02/17 Tumor immunohistochem/comput Completed 01/02/17 [id number]"DIAGNOSTIC MAMMOGRAPHY, PRODUCING DIRECT DIGITAL IMAG Completed [id number]"INFUSION, NORMAL SALINE SOLUTION , 250 CC" Completed 01/02/17 Mastectomy of right breast with sentinel lymph node biopsy Completed TITUS MANCERA MD Encounters Encounter Location Arrival/Admit Date Discharge/Depart Date Attending Provider Departed [facility] 01/15/17 7:25am 01/16/17 5:07pm TITUS MANCERA MD Registered [facility] 01/02/17 10:22am TITUS MANCERA MD Registered [facility] 12/31/16 9:27am MELISSA BACK II, MD Registered [facility] 12/19/16 9:00am MELISSA BACK II, MD Registered [facility] 10/25/16 2:35pm MELISSA BACK II, MD
[2017-02-11 12:15] VITALS: BP 134/82; PULSE 110; RESP 12; TEMP 97.8; O2SAT 96; Ht 166.4 cm; Wt 60.2 kg
[2017-02-11] MEDS ORDERED: PROPOFOL 500mg 50 ML IV ONE (12:47)
--- NOTE | 2017-02-11 13:08 | ANESPREOP ---
Anesthesia Record Date and Time DATE: 02/11/17 TIME: 1240 Proposed Surgical Procedure colonoscopy Allergies: Coded Allergies: codeine (Verified Allergy, Intermediate, swells, 02/11/17) Penicillins (Verified Allergy, Unknown, RASH, 02/11/17) Ht/Wt/BMI Height: 5 ' 5.50 " Weight: 60.200 kg BMI: 21.8 kg/m2 Vital Signs Date Time Temp Pulse Resp B/P Pulse Ox O2 Delivery O2 Flow Rate FiO2 02/11/17 12:15 97.8 110 12 134/82 96 Room Air Medications Inpatient Medications Current Medications Medications (Trade) Dose Ordered Sig/Epi Start Time Stop Time Status Last Admin Dose Admin Lactated Ringer's (Lactated Ringers) 1,000 ml @ 50 mls/hr Q20H 02/11/17 07:00 02/11/17 12:41 50 MLS/HR Lisinopril (Lisinopril) 10 Mg Tablet, 1 TAB PO DAILY, (Reported) Last Taken: on 02/10/17 0900 Metoprolol Tartrate (Metoprolol Tartrate) 50 Mg Tablet, 1 TAB PO HS, (Reported) Last Taken: on 02/09/17 2200 Currently on Beta Yojana: Yes Medical/Surgical History Anesthesia PMH: Reports: *Hypertension (TAKES MEDS), Cancer (RT BREAST CANCER - undergoing treatment), Hyperlipidemia, Denies: Anesthesia Reactions (NO AIRWAY ISSUES; NAUSEA), Glaucoma, Hepatitis, Malignant Hyperthermia, Rheumatic Fever, Sleep Apnea Smoking Status: Never smoker Use Chewing Tobacco?: No Second Hand Exposure: No Substance Use Type: does not use Alcohol Intake: none Last Drink: hours (ago) (8) HX of Last Menstrual Period: 2001 Past Surgical History Orthopedic Surgeries: Abdominal Surgeries: Yes - APPY Genitourinary Surgeries: Cardiac Surgeries: Endocrine Surgeries: Reproductive Surgeries: Yes - PARTIAL MASTECTOMY-RIGHT SIDE Neurological Surgeries: Ear Surgeries: Nose Surgeries: Throat Surgeries: Yes - TONSILLS Other Surgeries: Yes - COLONOSCOPY Anesthesia Adverse Reactions: FOUND nausea and vomiting Family Hx of Anesthesia Advers: none Hx of Motion Sickness: No Physical Exam Respiratory: Lungs clear Cardiovascular: FOUND Regular rate, rhythm Airway Assessment Mallampati Score: II TMD: 3 Fingerbreadths Neck Extension: Good Overall Assessment: No Airway Concerns ASA: 3 Plan Anesthesia Plan: TIVA Discussion Discussed risks/options/alternatives of anesthesia and questions answered. Patient consents. Nursing pain assessment noted. Attestation Statement Prior to the delivery of any anesthetic medication, I examined the patient, developed the plan, obtained the patient's consent and discussed the risk and benefits of the procedure with the patient/guardian. TARYN REDDY CRNA Feb 11, 2017 13:08
[2017-02-11 13:12] LABS: BASOPHILS % (AUTO) 0.3 % (0-2); EOSINOPHILS # (AUTO) 0.1 T/MM3 (0-0.5); EOSINOPHILS % (AUTO) 3.5 % (0-4); HCT - HEMATOCRIT 38.7 % (36-46); HGB - HEMOGLOBIN 12.9 GM/DL (12-16); LYMPHOCYTES # (AUTO) 0.8 T/MM3 (1-4.8); LYMPHOCYTES % (AUTO) 22.7 % (23-45); MEAN CORPUSCULAR HGB 30.5 UUG (26-34); MEAN CORPUSCULAR HGB CONC(MCHC 33.3 GM/DL (31-37); MEAN CORPUSCULAR VOLUME 91.5 UM3 (80-100); MEAN PLATELET VOLUME 10.2 UM3 (9.4-12.4); MONOCYTES # (AUTO) 0.3 T/MM3 (0-0.8); MONOCYTES % (AUTO) 8.6 % (0-9.0); NEUTROPHILS #(AUTO)-ABSOLUTE 2.2 T/MM3 (1.8-7.7); NEUTROPHILS % (AUTO) 64.9 % (33-66); RED BLOOD COUNT 4.23 M/MM3 (4.00-5.20); WBC - WHITE BLOOD COUNT 3.4 T/MM3 (4.5-11.0)
[2017-02-11 13:37] VITALS: BP 114/85; PULSE 95; RESP 14; TEMP 97; O2SAT 100
--- NOTE | 2017-02-11 13:45 | GSPOSTPROC ---
Immediate Operative Note DATE: 02/11/17 TIME: 13:43 Postop Diagnosis: colon polyps Surgical Procedure: C-scope w/Polypectomy Surgeon: Grace ASA: 3 TITUS MANCERA MD Feb 11, 2017 13:45
[2017-02-11 13:50] VITALS: BP 122/78; PULSE 84; RESP 20; O2SAT 100
--- NOTE | 2017-02-11 13:50 | ANESPO ---
Post-Op Note Date 02/11/17 Time: 13:50 Status Pt Participated in Evaluation: Pt participated in person Vital Signs Date Time Temp Pulse Resp B/P Pulse Ox O2 Delivery O2 Flow Rate FiO2 02/11/17 13:37 97.0 95 14 114/85 100 Room Air Respiratory Function: Airway patent Cardiovascular Function: Regular pulse Mental Status: Alert/oriented Pain Level Intensity: 0 Unable to Assess Pain Due To: Pt Sleeping Hydration: Taking po fluids Complications during Recovery None apparent Follow-Up Instructions Instructions Per Surgeon TARYN REDDY CRNA Feb 11, 2017 13:50
[2017-02-11 14:10] VITALS: BP 122/72; PULSE 72; RESP 17; O2SAT 100
--- NOTE | 2017-02-12 11:40 | OPNOTEF ---
DATE OF OPERATION 02/11/2017 PREOPERATIVE DIAGNOSES 1. Positive family history of colon carcinoma. 2. Desire for screening for colon and rectal carcinoma. POSTOPERATIVE DIAGNOSES 1. Positive family history of colon carcinoma. 2. Desire for screening for colon and rectal carcinoma. 3. Four colon polyps. 4. Sigmoid colon diverticulosis. OPERATION Total colonoscopy with polypectomy SURGEON Trevor Edwards MD ANESTHESIA TIVA ASA CLASS 3 FINDINGS There were no colon or rectal tumors. The patient did have four colon polyps. The patient had a tiny polyp at the cecum. The patient had a small ascending colon polyp. The patient had a large polyp located 80 cm proximal to the anal verge. The patient had a small polyp located 20 cm proximal to the anal verge. There were no rectal polyps. There were no colonic angiodysplasia lesions. There was no melanosis coli. There was no inflammatory bowel disease. The patient does have some sigmoid colon diverticulosis. DESCRIPTION OF OPERATION The patient was brought to the endoscopy room. The patient was placed on a cart in the endoscopy room. The patient was placed in left lateral recumbent position on the cart in the endoscopy room. The patient was premedicated with intravenous sedation medication administered by the nurse wire inserter. The Olympus colonoscope was used. The colonoscope was introduced into the rectum. The colonoscope was advanced up through the rectum and colon all the way up to the cecum. The appendiceal orifice was visualized. The ileocecal valve was visualized. A small polyp was present at the cecum. This tiny polyp was removed with one bite of the cold endoscopic biopsy forceps and submitted as a specimen for study by the pathologist. The colonoscope was withdrawn out through the colon. A small polyp was identified at the ascending colon. This polyp was removed with several bites of the cold endoscopic biopsy forceps and submitted as a specimen for study by the pathologist. The colonoscope was then withdrawn out through the colon to a level 80 cm proximal to the anal verge. A large polyp was seen at this area. This polyp was removed in one piece with the electrocautery snare device and retrieved and submitted as a specimen for study by the pathologist. The colonoscope was then withdrawn further out through the colon. Another small polyp was identified at a level 20 cm proximal to the anal verge. This polyp was removed with the cold endoscopic biopsy forceps and submitted as a specimen for study by the pathologist. The colonoscope was then withdrawn the remainder of the way out through the colon and rectum and removed from the patient. Digital rectal examination was performed. Findings throughout the procedure were as described above. The patient did continue to receive intravenous sedation medication administered by the nurse wire inserter throughout the operation. The patient did tolerate the operation well. CHERIE
== END 2017-02-11 14:23 | disposition home or self-care (01) ==
LOC: SCU 12:09
PROVIDERS: ATTEND Surgery
DX: Z12.11 Encounter for screening for malignant neoplasm of colon (principal); D12.0 Benign neoplasm of cecum; D12.2 Benign neoplasm of ascending colon; D12.6 Benign neoplasm of colon, unspecified; K63.5 Polyp of colon; K57.30 Diverticulosis of large intestine without perforation or abscess without bleeding; I10 Essential (primary) hypertension; E78.5 Hyperlipidemia, unspecified; C50.411 Malignant neoplasm of upper-outer quadrant of right female breast; Z79.899 Other long term (current) drug therapy; Z88.0 Allergy status to penicillin; Z88.5 Allergy status to narcotic agent; Z86.010 Personal history of colon polyps; Z80.0 Family history of malignant neoplasm of digestive organs; Z80.3 Family history of malignant neoplasm of breast
CPT/HCPCS: 36415; 45380; 45385; 85025; J7120; 88305

== ENCOUNTER 2017-02-14 05:48 | Day surgery (SDC) | payer MEDICARE, OTHER ==
[2017-02-14] VITALS (12 sets, daily range): BP systolic 111–132; BP diastolic 63–78; PULSE 56–70; RESP 12–18; TEMP 97.3–97.6; O2SAT 93–100; Ht 165.1 cm; Wt 61.5 kg
[~2017-02-14] VITALS: Ht 165.1 cm; Wt 61.5 kg
[~2017-02-14 05:48] MED LIST changes: -LIDOCAINE 1% (10mg/ml) 2ml SDV INJ ONE; -LR 1,000 ML IV SCH; -OXYC5TAB84 PO
--- OUTSIDE RECORDS SUMMARY | 2017-02-14 05:52 | XMS REPORT | Continuity of Care Document ---
Author Author [facility] Organization [facility] Address Unknown Phone Unavailable Support Name Relationship Address Phone TITUS MANCERA MD Caregiver [address] [place] [address] Unavailable MELISSA BACK II, MD Caregiver [address] [place] [address] Unavailable PHILIP BOYER MD Caregiver [address] [facility] [address] [place] [address] Unavailable REGINALD COLE Next Of Kin [address] [place] [address] Insurance Providers Guarantor Loni Cole Address [address] [place] [address] C Email [email or web address] Payer [employer]ign[employer] Medicare Supplement Policy Number [id number] Subscriber's Name Loni Cole Relationship 18 Self Group Number [id number] Payer Medicare Policy Number [id number] Subscriber's Name Loni Cole Relationship 18 Self Advance Directives Directive Response Recorded Date/Time Ordered Resuscitation Status Full Code 02/10/17 3:15pm Resuscitation Documents on File No 02/11/17 12:25pm DPOA for Healthcare Only No 02/11/17 12:25pm Living Will No 02/11/17 12:25pm Problems Active Problems Medical Problem Onset Date Status Anxiety Unknown Acute UTI (lower urinary tract infection) Unknown Acute Medications Current Home Medications Medication Dose Units Route Directions Days Qty Instructions Start Date Lisinopril 10 Mg Tablet 1 Tab Oral Daily 06/03/14 Metoprolol Tartrate 50 Mg Tablet 1 Tab Oral Bedtime 01/14/17 Social History Social History Problem Response Recorded Date/Time Onset Date Status Reason for Hospitalization SCREENING COLONOSCOPY 02/11/2017 2:04pm Not Applicable Not Applicable Chewing Tobacco Status No 02/11/2017 12:25pm Not Applicable Not Applicable Hx Substance Use No 02/11/2017 12:25pm Not Applicable Not Applicable Hx Alcohol Use Y "A GLASS OF WINE NIGHTLY" 02/11/2017 12:25pm Not Applicable Not Applicable Has the pt used tobacco in the last 12 months No 02/11/2017 12:25pm Not Applicable Not Applicable Tobacco Usage none 06/03/2014 3:19am Not Applicable Not Applicable Query Response Start Date Stop Date Smoking Status Former smoker Hospital Discharge Instructions Instructions: Care Instructions: I was in the hospital because (patient own words): olonoscopy Discharge Diet: Resume previous diet Discharge Activity: Restricted today, as tolerated tomorrow. Follow Up Appointments: None Pending Lab / Results: No Pending Lab Expected Signs/Symptoms: None Notify Physician If: Severe abdominal pain. During Business Hours:: Please call the physician's office at [phone] and choose option 2. After Business Hours:: Please call [phone] and have the wad printing machine operator page Dr. Mancera. Pain Management/Treatment: N/A Wound/Incision Care: N/A Condition at time of discharge: Good Plan of Care Discharge Date 02/11/17 2:23pm Instructions/Education Provided [facility] Prescriptions See Medication Section Functional Status Query Response Date Recorded Ability to complete ADL's impeded by No change February 11, 2017 12:25pm Allergies, Adverse Reactions, Alerts Allergen Type Severity Reaction Status Last Updated Penicillin Allergy Unknown RASH Active 02/11/17 Codeine Allergy Intermediate swells Active 02/11/17 Immunizations Query Response on File Recorded Date/Time Hx Influenza Vaccination Y 2016 02/11/17 12:25pm Hx Pneumococcal Vaccination Yes 02/11/17 12:25pm Hx Influenza Vaccination Y 2016 02/11/17 12:25pm Influenza Vaccine Hx November 2016 01/16/17 11:51am Vital Signs Acute Vital Signs Vital Response Date/Time Temperature (Fahrenheit) 97.0 deg F (96.8 - 99.1) 02/11/2017 1:37pm Temperature (Calculated Celsius) 36.20775 degrees C (36.0 - 37.3) 02/11/2017 1:37pm Temperature Source Temporal 02/11/2017 1:37pm Pulse Rate (adult) 72 bpm (60 - 100) 02/11/2017 2:10pm Respiratory Rate 17 breaths/min (10 - 20) 02/11/2017 2:10pm O2 Sat by Pulse Oximetry 100 % (90 - 100) 02/11/2017 2:10pm Oxygen Delivery Method Room Air 01/16/2017 11:35am Oxygen Delivery Method Room Air 02/11/2017 2:10pm Oxygen Flow Rate 1.00 L/min 01/15/2017 8:41pm Blood Pressure 122/72 mm Hg 02/11/2017 2:10pm Blood Pressure Source Automatic Cuff 02/11/2017 2:10pm Height (Feet) 5 feet 02/11/2017 12:15pm Height (Inches) 5.50 inches 02/11/2017 12:15pm Weight (Kilograms) 60.200 kg 02/11/2017 12:15pm Body Mass Index (BMI) 21.8 02/11/2017 12:15pm Results Laboratory Results Test Name Result Units Flags Reference Collection Date/Time Result Date/ Time Comments Icterus Index < 2 0-7 02/07/2017 7:43am 02/07/2017 7:57am Chemistry Specimen Hemolysis < 15 0-25 02/07/2017 7:43am 02/07/2017 7 :57am 0-25: Specimen Exhibited No Hemolysis. Turbidity < 20 0-20 02/07/2017 7:43am 02/07/2017 7:57am Sodium Level 145 MEQ/L H 134-144 02/07/2017 7:43am 02/07/2017 7:57am Potassium Level 4.2 MEQ/L 3.6-5 02/07/2017 7:43am 02/07/2017 7:57am Chloride Level 107 MEQ/L 98-107 02/07/2017 7:43am 02/07/2017 7:57am Carbon Dioxide Level 27 MEQ/L 22-30 02/07/2017 7:43am 02/07/2017 7: 57am Anion Gap 11 MEQ/L 5-15 02/07/2017 7:43am 02/07/2017 7:57am Blood Urea Nitrogen 17.0 MG/DL 7-17 02/07/2017 7:43am 02/07/2017 7: 57am Creatinine 1.0 MG/DL 0.7-1.2 02/07/2017 7:43am 02/07/2017 7:57am BUN/Creatinine Ratio 17 RATIO 6-26 02/07/2017 7:43am 02/07/2017 7:57am Glomerular Filtration Rate Calc 55 02/07/2017 7:43am 02/07/2017 7: 57am Glucose Level 115 MG/DL H 65-110 02/07/2017 7:4302/07/2017 7:57am Calculated Osmolality 282 MOSM/KG H 261-280 02/07/2017 7:432016 7:57am Calcium Level 10.1 MG/DL 8.4-10.2 02/07/2017 7:43am 02/07/2017 7:57am Total Bilirubin 0.90 MG/DL 0.20-1.30 02/07/2017 7:4302/07/2017 7: 57am Alkaline Phosphatase 68 U/L 38-126 02/07/2017 7:4302/07/2017 7:57am Total Protein 7.0 G/DL 6.3-8.2 02/07/2017 7:4302/07/2017 7:57am Albumin 4.2 G/DL 3.5-5.0 02/07/2017 7:4302/07/2017 7:57am Globulin 2.8 G/DL 2.4-3.6 02/07/2017 7:4302/07/2017 7:57am Albumin/Globulin Ratio 1.5 RATIO 1.1-2.2 02/07/2017 7:4302/07/2017 7 :57am Aspartate Amino Transf (AST/SGOT) 26 U/L 14-36 02/07/2017 7:43am 2016 7:57am Alanine Aminotransferase (ALT/SGPT) 28 U/L 9-52 02/07/2017 7:43am 02/07 7:57am White Blood Count 3.4 T/MM3 L 4.5-11.0 02/11/2017 12:48pm 02/11/2017 1: 12pm Red Blood Count 4.23 M/MM3 4.00-5.20 02/11/2017 12:48pm 02/11/2017 1: 12pm Hemoglobin 12.9 GM/DL 12-16 02/11/2017 12:48pm 02/11/2017 1:12pm Hematocrit 38.7 % 36-46 02/11/2017 12:48pm 02/11/2017 1:12pm Mean Corpuscular Volume 91.5 UM3 80-100 02/11/2017 12:48pm 02/11/2017 1 :12pm Mean Corpuscular Hemoglobin 30.5 UUG 26-34 02/11/2017 12:48pm 2016 1:12pm Mean Corpuscular Hemoglobin Concent 33.3 GM/DL 31-37 02/11/2017 12:48pm 02/11/2017 1:12pm RDW Standard Deviation 39.2 FL 36.9-50.2 02/11/2017 12:48pm 02/11/2017 1:12pm Platelet Count 227 T/MM3 130-400 02/11/2017 12:48pm 02/11/2017 1:12pm Mean Platelet Volume 10.2 UM3 9.4-12.4 02/11/2017 12:48pm 02/11/2017 1: 12pm Neutrophils (%) (Auto) 64.9 % 33-66 02/11/2017 12:48pm 02/11/2017 1: 12pm Lymphocytes (%) (Auto) 22.7 % L 23-45 02/11/2017 12:48pm 02/11/2017 1: 12pm Monocytes (%) (Auto) 8.6 % 0-9.0 02/11/2017 12:48pm 02/11/2017 1:12pm Eosinophils (%) (Auto) 3.5 % 0-4 02/11/2017 12:48pm 02/11/2017 1:12pm Basophils (%) (Auto) 0.3 % 0-2 02/11/2017 12:48pm 02/11/2017 1:12pm Immature Granulocyte % (Auto) 0.0 % 0.0-0.5 02/11/2017 12:48pm 2016 1:12pm Absolute Neutrophils (auto) 2.2 T/MM3 1.8-7.7 02/11/2017 12:48pm 2016 1:12pm Absolute Lymphocytes (auto) 0.8 T/MM3 L 1-4.8 02/11/2017 12:48pm 2016 1:12pm Absolute Monocytes (auto) 0.3 T/MM3 0-0.8 02/11/2017 12:48pm 2016 1:12pm Absolute Eosinophils (auto) 0.1 T/MM3 0-0.5 02/11/2017 12:48pm 2016 1:12pm Absolute Basophils (auto) 0.0 T/MM3 0-0.2 02/11/2017 12:48pm 2016 1:12pm Absolute Immature Granulocyte (auto 0.00 T/MM3 0.00-0.03 02/11/2017 12: 48pm 02/11/2017 1:12pm Procedures Procedure Status Date Provider(s) Breast tomosynthesis bi Completed 12/19/16 Dxa bone density axial Completed 12/19/16 239343"SCREENING MAMMOGRAPHY, PRODUCING DIRECT DIGITAL IMAGE Completed Ultrasound breast limited Completed 12/31/16 127060"DIAGNOSTIC MAMMOGRAPHY, PRODUCING DIRECT DIGITAL IMAG Completed Bx breast 1st lesion us imag Completed 01/02/17 Tissue exam by pathologist Completed 01/02/17 Immunohisto antb 1st stain Completed 01/02/17 Tumor immunohistochem/comput Completed 01/02/17 [id number]"DIAGNOSTIC MAMMOGRAPHY, PRODUCING DIRECT DIGITAL IMAG Completed [id number]"INFUSION, NORMAL SALINE SOLUTION , 250 CC" Completed 01/02/17 Perq dev breast 1st us imag Completed 01/15/17 Partial mastectomy Completed 01/15/17 TITUS MANCERA MD Routine venipuncture Completed 01/15/17 Biopsy/removal lymph nodes Completed 01/15/17 TITUS MANCERA MD Io map of sent lymph node Completed 01/15/17 TITUS MANCERA MD X-ray exam breast specimen Completed 01/15/17 Lymph system imaging Completed 01/15/17 Complete cbc w/auto diff wbc Completed 01/15/17 Tissue exam by pathologist Completed 01/15/17 [id number] ITEM OR SERVICE Completed 01/15/17 [id number] ITEM OR SERVICE Completed 01/15/17 [id number] ITEM OR SERVICE Completed 01/15/17 [id number] ITEM OR SERVICE Completed 01/15/17 [id number] ITEM OR SERVICE Completed 01/15/17 [id number] ITEM OR SERVICE Completed 01/15/17 [id number] ITEM OR SERVICE Completed 01/15/17 [id number] ITEM OR SERVICE Completed 01/15/17 [id number] ITEM OR SERVICE Completed 01/15/17 [id number]-[id number] ITEM OR SERVICE Completed 01/15/17 [id number] ITEM OR SERVICE Completed 01/15/17 [id number] Completed 03/15/17 230987"INJECTION, DEXAMETHASONE SODIUM PHOSPHATE, 1MG" Completed 01/15/17"INJECTION, HYDROMORPHONE, UP TO 4 MG" Completed 01/15/17"INJECTION, MIDAZOLAM HYDROCHLORIDE, PER 1 MG" Completed 01/15/17"INJECTION, ONDANSETRON HYDROCHLORIDE, PER 1 MG" Completed 01/15/17 PROPOFOL INJ 500 MG/50ML Completed 01/15/17"INJECTION, FENTANYL CITRATE, 0.1 MG" Completed 01/15/17"RINGERS LACTATE INFUSION, UP TO 1000 CC" Completed 01/15/17"RINGERS LACTATE INFUSION, UP TO 1000 CC" Completed 01/15/17"RINGERS LACTATE INFUSION, UP TO 1000 CC" Completed 01/15/17 METHYLENE BLUE INJ 10MG/ML Completed 01/15/17 Colonoscopy with polypectomy and biopsy Completed 02/11/17 TITUS MANCERA MD Encounters Encounter Location Arrival/Admit Date Discharge/Depart Date Attending Provider Departed [facility] Day [facility] 02/11/17 12:09pm 02/11/17 2 :23pm TITUS MANCERA MD Registered [facility] 02/07/17 7:12am PHILIP BOYER MD Departed [facility] 01/15/17 7:25am 01/16/17 5:07pm TITUS MANCERA MD Registered [facility] 01/02/17 10:22am TITUS MANCERA MD Registered [facility] 12/31/16 9:27am MELISSA BACK II, MD Registered [facility] 12/19/16 9:00am MELISSA BACK II, MD
--- OUTSIDE RECORDS SUMMARY | 2017-02-14 05:52 | XMS REPORT | Continuity of Care Document ---
Author Author [facility] Organization [facility] Address Unknown Phone Unavailable Support Name Relationship Address Phone CARI CHAMPION MD Caregiver [address] [place] [address] [place] [phone] REGINALD COLE Next Of Kin [address] [place] [id number] Insurance Providers Payer Name Policy Number Subscriber Name Relationship Medicare [id number] Sharon Cole 16 Self Advance Directives Directive [...] F (96.8 - 99.1) Temperature (Calculated Celsius) 35.39839 degrees C (36.0 - 37.3) Pulse Rate [...] Has specimen been collected/obtained? Y Urine Specific [place] June 03, 2014 4:40am 1.010 L - [...] Encounters Encounter Location Date/Time Departed Emergency Room [facility] 06/03/14 2:54am Recent Diagnosis
--- NOTE | 2017-02-14 06:53 | ANESPREOP ---
Anesthesia Record Date and Time DATE: 02/14/17 TIME: 06:51 Pre-Op Diagnosis breast cancer Proposed Surgical Procedure POWER PORT NPO since: mn Allergies: Coded Allergies: codeine (Verified Allergy, Intermediate, swells, 02/14/17) Penicillins (Verified Allergy, Unknown, RASH, 02/14/17) Ht/Wt/BMI Height: 5 ' 5.00 " Weight: 61.500 kg BMI: 22.6 kg/m2 Vital Signs Date Time Temp Pulse Resp B/P Pulse Ox O2 Delivery O2 Flow Rate FiO2 02/14/17 06:00 97.6 63 13 129/78 100 Room Air Medications Inpatient Medications Current Medications Medications (Trade) Dose Ordered Sig/Epi Start Time Stop Time Status Last Admin Dose Admin Lactated Ringer's (Lactated Ringers) 1,000 ml @ 50 mls/hr Q20H 02/14/17 07:00 02/14/17 06:42 50 MLS/HR Multi-Ingredient Antiseptic (Nozin Nasal Swab) 3 each PREOP PRN 02/14/17 07:00 02/14/17 06:41 3 EACH Lisinopril (Lisinopril) 10 Mg Tablet, 1 TAB PO DAILY, (Reported) Last Taken: on 02/13/17 0900 Metoprolol Tartrate (Metoprolol Tartrate) 50 Mg Tablet, 1 TAB PO HS, (Reported) Last Taken: on 02/13/17 220 Currently on Beta Yojana: Yes Beta Yojana Last Taken: 02-13-172199 Medical/Surgical History Anesthesia PMH: Reports: *Hypertension (TAKES MEDS), Cancer (RT BREAST CANCER - undergoing treatment), Hyperlipidemia Smoking Status: Never smoker Use Chewing Tobacco?: No Second Hand Exposure: No Substance Use Type: does not use Alcohol Intake: none Last Drink: hours (ago) HX of Last Menstrual Period: AGE 51 Past Surgical History Orthopedic Surgeries: Abdominal Surgeries: Yes - APPY Genitourinary Surgeries: Cardiac Surgeries: Endocrine Surgeries: Reproductive Surgeries: Yes - PARTIAL MASTECTOMY-RIGHT SIDE Neurological Surgeries: Ear Surgeries: Nose Surgeries: Throat Surgeries: Yes - TONSILS Other Surgeries: Yes - COLONOSCOPY Anesthesia Adverse Reactions: FOUND nausea and vomiting Family Hx of Anesthesia Advers: none Physical Exam Respiratory: Bilat breath sounds equal, Lungs clear Cardiovascular: FOUND Regular rate, rhythm Airway Assessment Mallampati Score: II TMD: 3 Fingerbreadths Neck Extension: Good Overall Assessment: No Airway Concerns ASA: 3 Plan Anesthesia Plan: TIVA, LMA, GETA Discussion Discussed risks/options/alternatives of anesthesia and questions answered. Patient consents. Nursing pain assessment noted. Present: Family Member Attestation Statement Prior to the delivery of any anesthetic medication, I examined the patient, developed the plan, obtained the patient's consent and discussed the risk and benefits of the procedure with the patient/guardian. DILAN NIÑO CRNA Feb 14, 2017 06:53
[2017-02-14] MEDS ORDERED: LR 1,000 ML IV SCH (07:00)
[2017-02-14] MEDS ORDERED: LIDOCAINE 1% (10mg/ml) 2ml SDV INJ ONE (07:00)
[2017-02-14] MEDS ORDERED: NOZIN NASAL SWAB NS PRN (07:00)
[2017-02-14] MEDS ORDERED: MIDAZOLAM 2mg/2ml INJECTION ONE (07:03)
[2017-02-14] MEDS ORDERED: PROPOFOL 500mg 50 ML IV ONE (07:03)
[2017-02-14] MEDS ORDERED: FENTANYL 100mcg/2ml INJECTION ONE (07:03)
[2017-02-14] MEDS ORDERED: BUPIVACAINE 0.25% (2.5mg/ml) INJ 30ml SDV ONE (07:15)
[2017-02-14] MEDS ORDERED: SALINE FLUSH *Sterile Field* 10ml SYRINGE ONE (07:16)
[2017-02-14] MEDS ORDERED: CLINDAMYCIN 600mg IVPB 50 ML IV ONE (08:00)
[2017-02-14] MEDS ORDERED: EPHEDRINE SULFATE 50mg/ml INJECTION ONE (08:09)
[2017-02-14] MEDS ORDERED: ONDANSETRON 4mg/2ml INJECTION ONE (08:23)
[2017-02-14] MEDS ORDERED: DEXAMETHASONE 4mg/ml - 1ml INJECTION ONE (08:23)
--- NOTE | 2017-02-14 09:02 | GSPOSTPROC ---
Immediate Operative Note DATE: 02/14/17 TIME: 09:01 Postop Diagnosis: Breast carcinoma Surgical Procedure: Other (Implantation of Power Port VAD) Surgeon: Grace ASA: 3 TITUS MANCERA MD Feb 14, 2017 09:02
--- NOTE | 2017-02-14 09:14 | DI ---
Indication: ITS.REASON: PORT PLACEMENT PROCEDURE: PORTACATH W FLUORO W 1V CXR: Encounter: Initial Comparison: None Findings: Left internal jugular approach central venous port catheter in place with the tip projecting over the lower SVC. No visible pneumothorax. The left apex is partially excluded from the [id number]. Lung molina are clear apart from a few scattered calcified granulomas. Heart size and mediastinal contours are within normal limits. Pulmonary vascularity is unremarkable. Impression: New port catheter as above. .
[2017-02-14] MEDS ORDERED: ACETAMINOPHEN 500 MG TABLET PO PRN (09:15)
[2017-02-14] MEDS ORDERED: IBUPROFEN 200 MG TABLET PO PRN (09:15)
[2017-02-14] MEDS ORDERED: ONDANSETRON 4mg/2ml INJECTION IV PRN (09:15)
[2017-02-14] MEDS ORDERED: OXYCODONE I.R. 5 MG TABLET PO PRN (09:15)
[2017-02-14] MEDS ORDERED: PROMETHAZINE 25 MG INJECTION IV PRN (09:15)
[2017-02-14] MEDS: MORPHINE 10mg/ml vl INJECTION IV PRN ×2 (09:19→09:33)
--- NOTE | 2017-02-14 09:59 | ANESPO ---
Post-Op Note Date 02/14/17 Time: 09:56 Status Pt Participated in Evaluation: Pt participated in person Vital Signs Date Time Temp Pulse Resp B/P Pulse Ox O2 Delivery O2 Flow Rate FiO2 02/14/17 09:51 18 02/14/17 09:45 65 132/75 95 Room Air 02/14/17 09:04 97.3 Respiratory Function: Airway patent, Regular respirations Cardiovascular Function: Regular pulse Mental Status: Alert/oriented Pain Level Intensity: 8 (oral pain med given) Hydration: Taking po fluids Complications during Recovery None apparent Follow-Up Instructions Instructions Per Surgeon DILAN NIÑO CRNA Feb 14, 2017 09:59
[2017-02-14] MEDS ORDERED: HYDROMORPHONE 2mg/ml INJECTION IV PRN (10:00)
--- NOTE | 2017-02-14 13:00 | NUR ---
OXYCODONE PRESCRIPTION WRITTEN COPY OF OXYCODONE GIVEN TO PT BY DR. MANCERA. NO PHOTOCOPY TAKEN.
--- NOTE | 2017-02-14 14:42 | OPNOTEF ---
DATE OF OPERATION 02/14/2017 PREOPERATIVE DIAGNOSIS Invasive ductal carcinoma at right breast. POSTOPERATIVE DIAGNOSIS Invasive ductal carcinoma at right breast. OPERATION Implantation of PowerPort vascular access device. SURGEON Dr. Edwards [facility] CLASS 3 DESCRIPTION OF OPERATION The patient was placed in supine position on the operating table. The patient was premedicated with intravenous sedation medication administered by the nurse outsole leveler. The suprasternal notch area, left supraclavicular area, left infraclavicular area, left side of the neck, left shoulder, right supraclavicular area, right infraclavicular area, right side of neck and right shoulder were all prepped and draped in routine sterile fashion. A ChangeTip ultrasound device was used to examine the left carotid artery and the left internal jugular vein. Bupivacaine 0.25% without epinephrine was infiltrated into the skin and subcutaneous tissue at the left side of the neck. A small incision was made at this area. A percutaneous venipuncture at the left internal jugular vein was then performed with ultrasound guidance. The left internal jugular vein was entered on the first needlestick. There was a good return of dark red nonpulsatile blood. A flexible guidewire was passed through the needle and through the left internal jugular vein down into the superior vena cava. The position of the flexible guidewire within the superior vena cava was confirmed with fluoroscopy with the C-arm at this time. Bupivacaine was infiltrated into the skin and subcutaneous tissue at an obliquely oriented incision at the left infraclavicular area. An obliquely oriented incision was made at this area and extended down through the underlying tissue. Bupivacaine was infiltrated into tissue at this area. A subcutaneous pocket was then made beneath the inferior margin of the left infraclavicular incision. The implantable port was flushed with heparinized saline solution. The port was placed into the pocket which had been created for it between the pectoralis fascia and the subcutaneous tissue at the left infraclavicular incision area. Two simple interrupted stitches of 0 Prolene suture were placed at each of the four corner suture rings to secure the port down to the underlying pectoralis fascia and pectoralis muscle. The catheter was flushed with heparinized saline solution. A hemostat was inserted at the left infraclavicular wound and passed over the clavicle and beneath the subcutaneous tissue to come out at the incision at the left side of the neck. The hemostat was used to grasp the end of the catheter and pull it through a tunnel from the incision at the left side of the neck down to the incision at the left infraclavicular area. A vessel dilator and sheath introducer were then advanced over the flexible guidewire into the internal jugular vein. The vessel dilator and guidewire were then removed from the peel- away sheath. The end of the catheter was introduced into the peel-away sheath. The catheter easily passed through the peel-away sheath down into the superior vena cava. The peel-away sheath was removed. The position of the catheter was checked with the C-arm. The position of the catheter was adjusted until the tip of the catheter was in the superior vena cava near the junction of the superior vena cava and the right atrium. Excess catheter at the distal end of the catheter was excised and discarded. The catheter was connected to the stem of the port at the left infraclavicular subcutaneous pocket. The catheter lock was advanced onto the stem of the port to lock the catheter in place on the stem of the port. With the catheter connected to the port, heparinized saline was injected through the port and through catheter. The position of the catheter was again checked with the C-arm. The position of the catheter appeared be satisfactory at this time. Subcutaneous tissue was closed at the obliquely oriented incision at the left infraclavicular area in two layers with a continuous simple [id number] stitch using 3-0 Vicryl suture. Skin margins were reapproximated at the obliquely oriented left infraclavicular incision with a continuous subcuticular stitch using 4-0 Vicryl suture. Skin margins were reapproximated at the short incision at the left side of the neck with interrupted subcuticular stitches using 4-0 Vicryl suture. Benzoin and 1/2-inch wide Steri-Strips were applied to the incisions at the left side of the neck and at the left infraclavicular area. Sterile dressings were applied to the incisions. The patient did receive intravenous sedation medication administered by the nurse outsole leveler throughout the operation as needed to maintain patient comfort. The patient did appear to tolerate the operation well. CHERIE
== END 2017-02-14 13:40 | disposition home or self-care (01) ==
LOC: SCU 05:48
PROVIDERS: ATTEND Surgery
DX: C50.411 Malignant neoplasm of upper-outer quadrant of right female breast (principal); I10 Essential (primary) hypertension; E78.5 Hyperlipidemia, unspecified; Z80.3 Family history of malignant neoplasm of breast; Z80.0 Family history of malignant neoplasm of digestive organs; Z79.899 Other long term (current) drug therapy
CPT/HCPCS: 36561; 77001; A9270; C1788; J1100; J1170; J1642; J2250; J2405; J3010; J7120

== ENCOUNTER → 2017-03-04 | Outpatient (CLI) | payer MEDICARE, OTHER ==
[~2017-03-04] MED LIST changes: +GADOBUTROL 10mMol/10ml INJECTION IV ONE; +SALINE FLUSH 10ml SYRINGE ONE
--- NOTE | 2017-03-04 10:30 | DI ---
Indication: ITS.REASON: M43.16 history of breast cancer with abnormality in the lumbar spine on prior CT. PROCEDURE: MRI LUMBAR SPINE W/WO CONTRAST: Encounter: Initial Comparison: Bone scan dated February 07, [address] chest, abdomen and pelvis dated February 07, 2017 Technique: Multiplanar multisequence MR imaging of the lumbar spine was performed with and without contrast. Contrast: 6 mL Gadavist Findings: Alignment of the lumbar spine is within normal limits. Marrow signal is very heterogeneous with extensive areas of atypical fatty deposition throughout the lower thoracic and lumbar vertebra as well as the visualized portions of the sacrum. The signal intensity is more homogeneous on the fat suppressed sequence without focal edema. The sclerotic lesion seen by CT in the right aspect of L5 shows low T1 and T2 signal intensity without visible postcontrast enhancement. No enhancing lesions are seen within the vertebral bodies or central spinal canal. Conus medullaris terminates normally at L1. The paraspinal soft tissues are within normal limits. Segmental analysis: L1-L2: Normal L2-L3: Normal L3-L4: Mild degenerative facet disease. No focal disk herniation, central canal or neural foraminal stenosis. L4-L5: Mild degenerative facet disease. No focal disk herniation, central canal or neural foraminal stenosis. L5-S1: Mild disk height loss without focal protrusion, central canal or neural foraminal stenosis. Impression: 1. The sclerotic lesion in the L5 vertebra appears benign. No definite evidence of metastatic disease to the spine. 2. Heterogeneous marrow with numerous areas of atypical fatty deposition. .
== END ==
LOC: IMA 08:25
PROVIDERS: ATTEND Internal Medicine Hematology & Oncology
DX: M43.16 Spondylolisthesis, lumbar region (principal)
CPT/HCPCS: 72158; A9585; J1642